=== PATIENT | female | born 1975 | race Caucasian/White ===

== ENCOUNTER 2018-12-13 07:00 | Emergency (ER) | payer MEDICAID, OTHER ==
[~2018-12-13] VITALS: Ht 154.9 cm; Wt 63.0 kg
[~2018-12-13 07:00] MED LIST: ASPI-1140 PO
[2018-12-13] MEDS ORDERED: ketorolac trometh inj. 60 MG/2 ML VIAL IM ONE (07:25)
[2018-12-13] MEDS ORDERED: HYDROcodone/acetaminophen 5mg/325mg tablet PO ONE (07:25)
[2018-12-13] MEDS ORDERED: HYDR-3965 PO (07:27)
[2018-12-13] MEDS ORDERED: PENI500T2 PO (07:27)
[2018-12-13 07:41] VITALS: BP 118/90
== END 2018-12-13 07:48 | disposition home or self-care (01) ==
LOC: ER 07:01
DX: K02.9 Dental caries, unspecified (principal); G43.909 Migraine, unspecified, not intractable, without status migrainosus; F32.9 Major depressive disorder, single episode, unspecified; F17.200 Nicotine dependence, unspecified, uncomplicated; F12.90 Cannabis use, unspecified, uncomplicated; F15.90 Other stimulant use, unspecified, uncomplicated; Z98.890 Other specified postprocedural states; Z79.2 Long term (current) use of antibiotics; Z79.82 Long term (current) use of aspirin; Z79.899 Other long term (current) drug therapy
CPT/HCPCS: 96372; 99283; J1885